=== PATIENT | female | born 1985 | race Caucasian/White ===

== ENCOUNTER 2016-11-30 12:55 | Day surgery (SDC) | payer OTHER ==
[2016-11-30] MEDS ORDERED: ceFAZolin 2 GM/DEXTROSE 100 ML IV ONE (13:29)
[2016-11-30 13:39] VITALS: PULSE 66
[2016-11-30] MEDS ORDERED: LR 1,000 ML IV ONE (13:39)
[2016-11-30] MEDS ORDERED: LIDOCAINE 1% 2 ML INJ ID PRN (13:39)
[2016-11-30] MEDS ORDERED: LIDOCAINE 1% 2 ML INJ ONE (13:48)
--- NOTE | 2016-11-30 14:43 | PDHPUP ---
History & Physical Update H&P update statement: This history and physical update is based on an assessment of the patient which was completed after admission or registration (within 24 hours), but prior to the surgery/procedure. H&P update: H&P reviewed & patient examined, no change in patient's condition since H&P completed
[2016-11-30] MEDS ORDERED: MIDAZOLAM 2 MG/2 ML VIAL IVP ONE (14:49)
--- NOTE | 2016-11-30 14:49 | PDANEPAE ---
ANE History of Present Illness Kidney stone on left ANE Past Medical History - Cardiovascular History Hx Hypertension: No Hx Arrhythmias: No Hx Chest Pain: No Hx Coronary Artery / Peripheral Vascular Disease: No Hx CHF / Valvular Disease: No Hx Palpitations: No - Pulmonary History Hx COPD: No Hx Asthma/Reactive Airway Disease: No Hx Recent Upper Respiratory Infection: No Hx Oxygen in Use at Home: No Hx Sleep Apnea: No - Neurologic History Hx Cerebrovascular Accident: No Hx Seizures: No Hx Dementia: No - Endocrine History Hx Diabetes: No - Renal History Hx Renal Disorders: No - Liver History Hx Hepatic Disorders: No - Neurological & Psychiatric Hx Hx Neurological and Psychiatric Disorders: No - Cancer History Hx Cancer: No - Congenital Disorder History Hx Congenital Disorders: No - GI History Hx Gastrointestinal Disorders: No - Surgical History Prior Surgeries: laporascopy, remove cyst on left hand, T&A ANE Review of Systems - Exercise capacity METS (RN): 5 METS ANE Patient History - Allergies Allergies/Adverse Reactions: No Known Drug Allergies Allergy (Verified 11/27/16 07:48) - Home Medications Home Medications: IBUPROFEN 11/30/16 [Last Taken 11/29/16 22:00] traMADol 11/30/16 [Last Taken 11/29/16 22:00] - NPO status NPO Since - Liquids (Date): 11/30/16 NPO Since - Liquids (Time): 10:00 NPO Since - Solids (Date): 11/29/16 NPO Since - Solids (Time): 20:00 - Smoking Hx Smoking Status: Never smoked ANE Labs/Vital Signs - Vital Signs Blood Pressure: 108/45 Heart Rate: 66 Respiratory Rate: 18 O2 Sat (%): 96 Height: 162.56 cm Weight: 65.771 kg ANE Physical Exam - Airway Neck exam: FROM Mallampati Score: Class 1 - Pulmonary Pulmonary: no respiratory distress - Cardiovascular Cardiovascular: regular rate and rhythym - ASA Status ASA Status: I ANE Anesthesia Plan Anesthesia Plan: GA w LMA
[2016-11-30] MEDS ORDERED: fentaNYL 100 MCG/2 ML INJ ONE ×2 (14:55→16:24)
[2016-11-30] MEDS ORDERED: PROPOFOL 200 MG/20 ML VIAL ONE (14:55)
[2016-11-30] MEDS ORDERED: DEXAMETHASONE 4 MG/ML VIAL ONE (14:56)
[2016-11-30] MEDS ORDERED: ONDANSETRON 4 MG/2 ML VIAL ONE (14:56)
[2016-11-30] MEDS ORDERED: LIDOCAINE 2% 5 ML SDV ONE (14:56)
[2016-11-30] MEDS ORDERED: LIDOCAINE 2% JELLY 5 ML TUBE ONE (14:57)
[2016-11-30] MEDS ORDERED: IOPAMIDOL (ISOVUE-M 300) 15 ML VIAL ONE (15:01)
[2016-11-30] MEDS ORDERED: HYDROmorphONE/DILAUDID 1 MG/ML SYR IVP PRN (16:02)
[2016-11-30] MEDS ORDERED: ONDANSETRON 4 MG/2 ML VIAL IVP PRN (16:02)
[2016-11-30] MEDS ORDERED: NALOXONE HCL 0.4 MG/ML INJ IVP PRN (16:02)
[2016-11-30] MEDS ORDERED: PROMETHAZINE HCL 25 MG/ML INJ IVP PRN (16:02)
[2016-11-30] MEDS ORDERED: fentaNYL 100 MCG/2 ML INJ IVP PRN (16:02)
--- NOTE | 2016-11-30 16:14 | POSTOPPROG ---
Post Op Note Date of Operation: 11/30/16 Surgeon: Blue Montesinos Anesthesia: LMA Pre-op Diagnosis: Left ureteral and renal calculi Post-op Diagnosis: same Procedure: Left ureteroscopy, stone extraction, stent placement Findings: 7 mm proximal ureteral stone Inf/Abcess present in the surg proc area at time of surgery?: No EBL: Minimal
--- NOTE | 2016-11-30 16:18 | POSTANESTH ---
Post Anesthetic Evaluation Cardiovascular Status: Normal, Stable Respiratory Status: Normal, Stable Level of Consciousness/Mental Status: Can Participate in Eval Pain Control: Adequate, Prn Tx Ordered Nausea/Vomiting Control: Adequate, Prn Tx Ordered Complications Possibly Related to Anesthesia: None Noted
[2016-11-30 16:23] VITALS: TEMP 97.5
[2016-11-30 17:07] VITALS: BP 125/73; RESP 16; O2SAT 96
--- NOTE | 2016-11-30 19:52 | GOP ---
[f rep st] OPERATIVE REPORT DATE OF OPERATION: 11/30/2016 SURGEON: Blue Montesinos MD PREOPERATIVE DIAGNOSIS: Left ureteral calculi. POSTOPERATIVE DIAGNOSIS: Left ureteral calculi. PROCEDURE PERFORMED: Left ureteroscopy with basket extraction of stone, placement of indwelling ure teral stent. FINDINGS: SPECIMENS: Left ureteral stone for analysis. INDICATIONS: The patient is a 31-year-old female, who presented 2 weeks earlier with obstructing ur eteral stones and fever. A stent was placed at that time, and she has completed a course of antibio tics. After discussing options, she elected to come in for definitive stone removal. DESCRIPTION OF PROCEDURE: After informed consent and with general LMA anesthesia, the patient was p laced in the lithotomy position with her genitalia sterilely prepped and draped. Cystoscopy was car ried out and the previously placed stent was exchanged for a Sensor guidewire. The semirigid and fl exible scopes were then advanced into the ureter. The stone was identified and grasped with a Huber ol basket. It was able to be manipulated out through the ureter. The entire collecting system on t he left side was then examined and after removing all fragments, the scope was removed and a 6-Frenc h ureteral stent placed. A withdrawal string was left in place. The patient was awakened and transferred to the recovery room in stable condition. There were no in traoperative complications or blood loss. /[id number]/MODL
[2016-12-05 17:58] LABS: SOURCE OF STONE LEFT URETER
[2016-12-05 18:01] LABS: NIDUS NOT OBSERVED
== END 2016-11-30 17:08 | disposition home or self-care (01) ==
LOC: FSGY 12:55
PROVIDERS: ATTEND Urology
PROC: 0T774DZ Dilation of Left Ureter with Intraluminal Device, Percutaneous Endoscopic Approach (ICD-10-PCS; principal; 2016-11-30 14:15)
PROC: 0TF78ZZ Fragmentation in Left Ureter, Via Natural or Artificial Opening Endoscopic (ICD-10-PCS; principal; 2016-11-30 14:15)
DX: N20.1 Calculus of ureter (principal); N20.0 Calculus of kidney
CPT/HCPCS: 52356; 76001; C1769; 82365-90; C2625; J0690; J1100; J2250; J2405; J2704; J3010; Q9967